=== PATIENT | male | born 2000 | race American Indian/Alaskan Native ===

== ENCOUNTER 2020-06-01 02:34 | Emergency (ER) | payer SELFPAY ==
[2020-06-01 02:53] VITALS: BP 127/81
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
== END 2020-06-01 05:24 | disposition home or self-care (01) ==
LOC: ED 02:34
DX: S62.502A Fracture of unspecified phalanx of left thumb, initial encounter for closed fracture (principal); S70.212A Abrasion, left hip, initial encounter; S60.512A Abrasion of left hand, initial encounter; M79.642 Pain in left hand; M25.552 Pain in left hip; Z79.899 Other long term (current) drug therapy; V29 Motorcycle rider injured in other and unspecified transport accidents; Y93.89 Activity, other specified; Y92.89 Other specified places as the place of occurrence of the external cause; Y99.8 Other external cause status